=== PATIENT | female | born 1990 | race Caucasian/White ===

== ENCOUNTER → 2019-11-02 | Outpatient (CLI) | payer OTHER ==
[~2019-11-02] MED LIST: BCP'S; HYDACE5 PO; HYDR1TAB94 PO; IBUP800 PO; MULVITMINE PO; NITR100CA PO; PROM25 PO
== END | disposition home or self-care (01) ==
LOC: LAB EV 08:08 → LAB SHORT 08:08
DX: N39.0 Urinary tract infection, site not specified (principal)
CPT/HCPCS: 87077; 87086; 87186

== ENCOUNTER → 2022-02-20 | Outpatient (CLI) | payer OTHER | END | disposition home or self-care (01) | LOC: LAB SHORT 12:08 → LAB 12:08 | DX: N39.0 Urinary tract infection, site not specified (principal) | CPT/HCPCS: 87077; 87086; 87186 ==